=== PATIENT | male | born 1960 | race African-American/Black ===

== ENCOUNTER 2017-01-12 06:20 | Day surgery (SDC) | payer BC ==
[~2017-01-12] VITALS: Ht 188 cm; Wt 104.3 kg
[2017-01-12] VITALS (7 sets, daily range): BP systolic 118–130; BP diastolic 67–80
--- NOTE | 2017-01-12 06:22 | Anethesia Preoperative Eval ---
Anesthesia Pre-op PMH/ROS General Date of Evaluation: January 12, 2017 Time of Evaluation: 06:19 Anesthesiologist: vinny ASA Score: ASA 2 Mallampati Score Class I : Soft palate, uvula, fauces, pillars visible Class II: Soft palate, uvula, fauces visible Class III: Soft palate, base of uvula visible Class IV: Only hard plate visible Mallampati Classification: Class II Surgeon: thom Diagnosis: anemia Surgical Procedure: EGD diagnostic/colonscopy Anesthesia History: none Family History: no anesthesia problems Allergies: Coded Allergies: No Known Allergies (Unverified , 01/12/17) Medications: see eMAR Past Medical History Gastrointestinal/Genitourinary: Reports: other - gastritis Other: other - anemia Anesthesia Pre-op Phys. Exam Physician Exam Constitutional: NAD Neurologic: CN 2-12 intact Cardiovascular: RRR Respiratory: CTA Gastrointestinal: S/NT/ND Airway Exam ROM: full Teeth: intact Dentures: no lower, no upper Anesthesia Pre-op A/P Risk Assessment & Plan Assessment: anemia Plan: EGD diagnostic/colonoscopy Status Change Before Surgery: No Pre-Antibiotics Drug: LYNDON Branch January 12, 2017 06:22
[2017-01-12] MEDS ORDERED: LR 1000ml 1,000 ML IVLG SCH (06:48)
[2017-01-12] MEDS ORDERED: LR 1000ml ONE (07:00)
[2017-01-12] MEDS ORDERED: Lidocaine 1% MPF 10mg/ml 5ml ONE (07:00)
[2017-01-12] MEDS ORDERED: fentaNYL 100 mcg/2 mL IV PRN (07:00)
[2017-01-12] MEDS ORDERED: Norco 5mg/325mg tab ORAL PRN (07:00)
[2017-01-12] MEDS ORDERED: LORazepam Inj 2mg/ml 1ml IV PRN (07:00)
[2017-01-12] MEDS ORDERED: Propofol 10mg/ml 20ml IV ONE (07:00)
--- NOTE | 2017-01-12 07:14 | Pre-Procedure Note/Attestation ---
Pre-Procedure Note/Attestation Complete Prior to Procedure Planned Procedure: not applicable Procedure Narrative: esophagogastroduodenoscopy colon, Indications for Procedure Pre-Operative Diagnosis: anemia, screen Attestation I attest that I discussed the nature of the procedure; its benefits; risks and complications; and alternatives (and the risks and benefits of such alternatives ), prior to the procedure, with the patient (or the patient's legal passenger service representative). I attest that, if there was a reasonable possibility of needing a blood transfusion, the patient (or the patient's legal passenger service representative) was given the [facility] standardized written summary, pursuant to the Mumtaz Criss Blood Safety Act ([place] Health and Safety Code # 1645, as amended). I attest that I re-evaluated the patient just prior to the surgery and that there has been no change in the patient's H&P, except as documented below: NAE MOTTA January 12, 2017 07:14
--- NOTE | 2017-01-12 07:15 | Short Stay Surgery H&P ---
History of Present Illness History of Present Illness Chief Complaint see attached H&P HPI Edaravind Wyatt is a 56 year old male who was admitted on for Anemia Patient History Allergies: Coded Allergies: No Known Allergies (Unverified , 01/12/17) PAST MEDICAL HISTORY: Past Surgeries: Social History: Physical Exam Vital Signs Last Vital Signs Date Time Temp Pulse Resp B/P Pulse Ox O2 Delivery O2 Flow Rate FiO2 01/12/17 07:05 97.2 54 20 128/80 100 Room Air Plan Attestation Are the patient's medical conditions optimized for surgery? NAE MOTTA January 12, 2017 07:15
--- NOTE | 2017-01-12 07:37 | Immediate Post-Op Evaluation ---
Immediate Post-Op Evalulation Immediate Post-Op Evalulation Procedure: egd colonocopy Date of Evaluation: January 12, 2017 Time of Evaluation: 08:05 IV Fluids: lr 400ml Estimated Blood Loss: negligible Blood Pressure Systolic: 118 Blood Pressure Diastolic: 78 Pulse Rate: 61 Respiratory Rate: 18 O2 Sat by Pulse Oximetry: 99 Temperature (Fahrenheit): 97.0 Pain Score (1-10): 0 Nausea: No Vomiting: No Complications none Patient Status: awake, reacts, patent Hydration Status: adequate Drug: YLNDON Branch January 12, 2017 07:37
--- NOTE | 2017-01-12 16:46 | Operative Note - Dictated ---
DATE OF OPERATION: 01/12/2017 PROCEDURE: Upper gastroendoscopy with biopsy as well as colonoscopy with biopsy. SURGEON: Beau Londono M.D. ANESTHESIA: Please see the separate anesthesiologist notes for details. PRE-ENDOSCOPIC DIAGNOSES: Anemia as well as need for screening colonoscopy. POST-ENDOSCOPIC DIAGNOSES: 1. Mild proximal gastritis in the proximal portion of stomach, status post random biopsies. 2. Status post random biopsy with normal duodenum. 3. Diminutive distal rectal polyp status post biopsy. PROCEDURE: The procedure, its risks, indications, alternatives, and possible complications were explained to the patient and informed consent was obtained. The patient was then sedated in the left lateral decubitus position. A diagnostic upper endoscope was introduced through the oropharynx and advanced to the duodenum without difficulty. The endoscope was then gradually withdrawn and mucosa examined carefully. Examination of the upper gastrointestinal mucosa revealed only possible gastritis. Biopsies of the body of the stomach as well as duodenum were sent to pathology for review. The endoscope was removed. Rectal exam was done. The colonoscope was used introduced into rectum and advanced to the cecum without difficulty. The cecum was identified by the appearance of the ileocecal valve. The colonoscope was then gradually withdrawn and mucosa examined carefully. Examination of the colonic mucosa revealed a diminutive distal rectal polyp which was removed in the retroflexed position. The remainder of the examination was unremarkable. The colonoscope was removed. The patient was sent to recovery in good condition. COMPLICATIONS: None. RECOMMENDATIONS: 1. Followup biopsy results. 2. Resume oral diet. 3. Outpatient followup. Beau Londono M.D. DR: Nara JOB#: [id number] CC: Beau Londono M.D.; Fax#: [phone]
[2017-01-13 20:09] VITALS: BP 123/78
--- NOTE | 2017-01-13 20:09 | 48 Hour Post Anesthesia Eval ---
Post Anesthesia Evaluation Procedure: egd colonocopy Date of Evaluation: January 11, 2017 Time of Evaluation: 08:50 Blood Pressure Systolic: 123 0: 78 Pulse Rate: 84 Respiratory Rate: 18 Temperature (Fahrenheit): 97.2 O2 Sat by Pulse Oximetry: 100 Airway: patent Nausea: No Vomiting: No Pain Intensity: 0 Hydration Status: adequate Cardiopulmonary Status: stable Mental Status/LOC: patient returned to baseline Post-Anesthesia Complications: none Follow-up care needed: N/A LYNDON TOMLINSON January 13, 2017 20:09
== END 2017-01-12 09:00 | disposition home or self-care (01) ==
LOC: GAS 06:20
DX: Z12.11 Encounter for screening for malignant neoplasm of colon (principal); K62.1 Rectal polyp; D64.9 Anemia, unspecified; K29.70 Gastritis, unspecified, without bleeding; B96.81 Helicobacter pylori [H. pylori] as the cause of diseases classified elsewhere; G43.909 Migraine, unspecified, not intractable, without status migrainosus; Z87.19 Personal history of other diseases of the digestive system; Z83.71 Family history of colonic polyps
CPT/HCPCS: 43239; 45380; J2704; J7120; 94003; 94150